=== PATIENT | female | born 1970 | race Caucasian/White ===

== ENCOUNTER 2017-08-28 10:33 | Emergency (ER) | payer MEDICAID ==
[~2017-08-28] VITALS: Ht 177.8 cm; Wt 110.4 kg
[~2017-08-28 10:33] MED LIST: AMOX875T PO; HYDR25TA11 PO; LOSA1TAB22 PO; MAGIC MOUTHWASH PO; OMEP-110 PO
[2017-08-28 10:46] VITALS: BP 147/88
[2017-08-28 11:44] LABS: BASOPHILS # (AUTO) 0.14 x10^3/uL (0-0.1); BASOPHILS % (AUTO) 1 % (0-1); EOSINOPHILS # (AUTO) 0.18 x10^3/uL (0-0.4); EOSINOPHILS % (AUTO) 2 % (1-7); LYMPHOCYTES # (AUTO) 1.93 x10^3/uL (1-3.4); LYMPHOCYTES % (AUTO) 16 % (22-44); MD NO; MEAN CORPUSCULAR HEMOGLOBIN 24.6 pg (27.0-34.8); MEAN CORPUSCULAR HGB CONC 32.6 g/dL (32.4-35.8); MEAN CORPUSCULAR VOLUME 75.5 fL (80-100); MEAN PLATELET VOLUME 8.8 fL (7.4-10.4); MONOCYTES # (AUTO) 0.59 x10^3/uL (0.2-0.8); MONOCYTES % (AUTO) 5 % (2-9); NEUTROPHILS # (AUTO) 9.22 x10^3/uL (1.8-6.8); NEUTROPHILS % (AUTO) 77 % (42-75); PLATELET COUNT 357 x10^3/uL (130-400); RED BLOOD COUNT 5.37 x10^6/uL (3.82-5.3)
[2017-08-28 11:56] LABS: ALBUMIN 3.6 g/dL (3.4-5.0); ANION GAP 7 mmol/L (5-15); CALCIUM 9.1 mg/dL (8.5-10.1); CHLORIDE 105 mmol/L (98-107); CREATININE 0.78 mg/dL (0.55-1.02)
[2017-08-28 15:16] LABS: MICROSCOPIC NOT IND
[2017-08-28 15:18] LABS: CULTURE INDICATED? NO
== END 2017-08-28 16:34 | disposition home or self-care (01) ==
LOC: ED 16:23
DX: N75.1 Abscess of Bartholin's gland (principal); G89.29 Other chronic pain; I10 Essential (primary) hypertension
CPT/HCPCS: 36415; 76830; 80048; 81003; 82040; 84703; 85025; 99285

== ENCOUNTER 2019-07-06 10:35 | Emergency (ER) | payer MEDICAID ==
[~2019-07-06] VITALS: Ht 175.3 cm; Wt 96.4 kg
[~2019-07-06 10:35] MED LIST changes: +HYDR-826 PO; -HYDR25TA11 PO
--- NOTE | 2019-07-06 11:16 | NUR ---
[employer]: PT AMBULATORY WITH STEADY GAIT TO ROOM AT THIS TIME. MAGED
[2019-07-06 11:32] VITALS: BP 133/65
--- NOTE | 2019-07-06 11:35 | NUR ---
FIRST CONTACT WITH PT. PT C/O DIZZINESS X 1 WEEK, RECTAL BLEEDING RED BLOOD (HX OF HEMORROIDS) PT DENIES URINE SYMPTOMS. PT'S AOX4. RESPS EVEN AND UNLABORED. ALL MONITORS IN PLACE. CALL LIGHT WITHIN REACH.
[2019-07-06 12:22] LABS: BASOPHILS # (AUTO) 0.09 x10^3/uL (0-0.1); BASOPHILS % (AUTO) 1 % (0-1); EOSINOPHILS # (AUTO) 0.14 x10^3/uL (0-0.4); EOSINOPHILS % (AUTO) 2 % (1-7); LYMPHOCYTES % (AUTO) 27 % (22-44); MD NO; MEAN CORPUSCULAR HEMOGLOBIN 26.7 pg (27.0-34.8); MEAN CORPUSCULAR HGB CONC 32.1 g/dL (32.4-35.8); MEAN CORPUSCULAR VOLUME 83.1 fL (80-100); MEAN PLATELET VOLUME 8.6 fL (7.4-10.4); MONOCYTES # (AUTO) 0.71 x10^3/uL (0.2-0.8); MONOCYTES % (AUTO) 9 % (2-9); NEUTROPHILS # (AUTO) 5.05 x10^3/uL (1.8-6.8); NEUTROPHILS % (AUTO) 62 % (42-75); PLATELET COUNT 312 x10^3/uL (130-400); RED BLOOD COUNT 5.18 x10^6/uL (3.82-5.3); RED CELL DISTRIBUTION WIDTH 15.1 % (9.6-15.2)
[2019-07-06 12:32] LABS: ALBUMIN 3.8 g/dL (3.4-5.0); ANION GAP 4 mmol/L (5-15); CALCIUM 9.2 mg/dL (8.5-10.1); CHLORIDE 108 mmol/L (98-107)
[2019-07-06 12:33] LABS: CREATININE 0.78 mg/dL (0.55-1.02)
--- NOTE | 2019-07-06 13:12 | NUR ---
Patient given discharge instructions and they have confirmed that they understand the instructions. Patient ambulatory with steady gait.
== END 2019-07-06 13:13 | disposition home or self-care (01) ==
LOC: ED 13:00
DX: K62.5 Hemorrhage of anus and rectum (principal); I10 Essential (primary) hypertension; R42 Dizziness and giddiness
CPT/HCPCS: 36415; 80048; 82040; 85025; 93005; 99284

== ENCOUNTER 2019-09-18 14:23 | Emergency (ER) | payer MEDICAID ==
[~2019-09-18] VITALS: Ht 175.3 cm; Wt 98.9 kg
--- NOTE | 2019-09-18 14:49 | NUR ---
called for triage, no answer.
[2019-09-18 14:53] VITALS: BP 145/83
--- NOTE | 2019-09-18 15:20 | NUR ---
PT AMBULATORY WITH STEADY GAIT TO ROOM AT THIS TIME. MAGED
== END 2019-09-18 16:18 | disposition home or self-care (01) ==
LOC: ED 16:06
DX: S93.401A Sprain of unspecified ligament of right ankle, initial encounter (principal); S90.31XA Contusion of right foot, initial encounter; G56.03 Carpal tunnel syndrome, bilateral upper limbs; X50.1XXA Overexertion from prolonged static or awkward postures, initial encounter; Y93.89 Activity, other specified; Y92.89 Other specified places as the place of occurrence of the external cause; Y99.8 Other external cause status; I10 Essential (primary) hypertension
CPT/HCPCS: 29125; 99284

== ENCOUNTER 2020-03-06 09:54 | Emergency (ER) | payer MEDICAID ==
[~2020-03-06] VITALS: Ht 177.8 cm; Wt 103.5 kg
--- NOTE | 2020-03-06 10:26 | NUR ---
ROSIE GOLDSTEIN AT BEDSIDE FOR INITIAL ASSESSMENT.
[2020-03-06 11:53] VITALS: BP 155/82
--- NOTE | 2020-03-06 11:54 | NUR ---
PT PRESENTS TO ED WITH WORSENING BILATERAL WRIST AND FOREARM PAIN THAT IS CHRONIC, D/T CARPEL TUNNEL DISEASE. PT SEEN AND EXAMINED BY ROSIE GOLDSTEIN, REQUESTING PAIN MEDICATION, HOWEVER HAS ALREADY TAKEN TYLENOL AND MOTRIN THIS AM. ROSIE GOLDSTEIN DECLINES TO ORDER PAIN MEDICATION. BILATERAL WRIST LACER APPLIED BY THIS RN, CMS INTACT S/P PLACEMENT. PT GIVEN ORTHO EDUCATION AND DC INSTRUCTIONS INCLUDING INSTRUCTIONS FOR DC RX NAPROXEN. PT A&O, RESPS EVEN AND UNLABORED, MAGED. PT AMBULATORY TO DC DESK WITH STEADY GAIT.
== END 2020-03-06 11:55 | disposition home or self-care (01) ==
LOC: ED 10:39
DX: G56.03 Carpal tunnel syndrome, bilateral upper limbs (principal); Z76.0 Encounter for issue of repeat prescription; I10 Essential (primary) hypertension; J45.909 Unspecified asthma, uncomplicated
CPT/HCPCS: 29125; 99283